=== PATIENT | male | born 2005 | race Caucasian/White ===

== ENCOUNTER 2024-08-05 21:45 | Outpatient (CLI) | payer BC, SELFPAY | END 2024-08-05 21:46 | disposition home or self-care (01) | LOC: AMB 08-18 18:45 | PROVIDERS: Visit Provider Student in an Organized Health Care Education/Training Program | DX: F29 Unspecified psychosis not due to a substance or known physiological condition (principal) | CPT/HCPCS: A0425; A0427 ==

== ENCOUNTER 2024-10-17 22:28 | Emergency (ER) | payer BC, SELFPAY ==
--- OUTSIDE RECORDS SUMMARY | 2024-10-17 22:31 | XMS_ITS | Clinical Summary ---
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 (07/13/2007): of the spermatic cord Resolved Problems Problem Noted Date Diagnosed Date Resolved Date Manic behavior 06/06/2021 06/10/2022 Immunizations Immunization Administration Dates Next Due COVID-19 vaccine (HungerTime NTech 30mcg/0.3mL) PF, MDV 07/05/2021 DTaP 04/25/2006 [id number] (Pediarix) 05/02/2005,02/21/2005,0 2004 HIB PRP-OMP (PedvaxHIB) 01/24/2006,02/21/2005, Inactivated Polio Vaccine 08/30/2013 MENINGOCOCCAL VACCINE 2 VIAL [id number] (MENVEO) 02/20/2018 MMR 08/30/2013,01/24/2006 Pneumococcal conj 7-Valent (Prevnar 7) 1 ,02/21/2005,2004,12/24 Td, Preservative Free (age >= 7 Years) 4 Tdap 02/20/2018 Family History Medical History Relation Name Comments Good Health Brother Good Health Father Good Health Mother Asthma Other distant relativ es on mom's side Cancer-colon Other maternal great grandma Diabetes Other maternal great aunt Heart Disease Other maternal great aunt Anesthesia Problem No Family History Hyperlipidemia No Family History Relation Name Status Comments Brother Father Mother Other Social History Tobacco Use Types Packs/Day Years Used Date Smoking Tobacco: Never Smokeless Tobacco: Never Tobacco Cessation:Counseling Given: Yes Comments:no exposure Alcohol Use Standard Drinks/Week Comments Yes 0 (1 standard drink = 0.6 oz pur e alcohol) occ PHQ-2 Answer Date Recorded PHQ-2 TOTAL SCORE 6 04/29/2023 Sex and Gender Information Value Date Recorded Sex Assigned at Not on file 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 Gender Identity Not on file Sexual Orientation Not on file Obstetrics History Last Filed Vital Signs Vital Sign Reading Time Taken Comments Blood Pressure 135/62 04/29/2023 9:36 AM CDT Pulse 84 04/29/2023 9:36 AM CDT Temperature 36.4 C (97.6 F) 11/08/2013 2:05 PM CDT Respiratory Rate - - Oxygen Saturation 100% 04/29/2023 9:36 AM CDT Inhaled Oxygen Concentration - - Weight 78.7 kg (173 lb 9.6 oz) 04/29/2023 9:36 A M CDT Height 189.9 cm (6' 2.76) 04/29/2023 9:36 AM CD T Body Mass Index 21.84 04/29/2023 9:36 AM CDT Body Mass Index Percentile 45.15% 04/29/2023 9:3 6 AM CDT Growth Chart: CDC (Boys, 2-2 0 Years) Plan of Treatment Health Maintenance Due Date Last Done Comments HIV for age 15-65 10/23/2019 HPV series for age 9-26 (1 - Male 3-dose series) 10/23/2019 Hepatitis C screening for age 18-79 2022 Well Child Check for age 3-20 06/10/2023 06/10/2022, 02/20/2018, 08/30/2013 COVID-19 vaccine series ( season) 2024 07/05/2021, 12/08/2020, 11/17/2020 Influenza Vaccine (#1) 2024 BMI (ht and wt on same day) for age 18+ 04/29/2024 04/29/2023 Depression screening for age 12+ 04/29/2024 04/29/2023, 06/10/2022 Tetanus booster 02/21/2028 02/20/2018, 08/30/2013 Pneumococcal series for age 6-49 Aged Out 04/25/2006, 02/21/2005, 2004, Additional history exists No longer eligible based on patient's age to complete this topic Meningococcal series for age 11-21 Aged Out 02/20/2018 No longer eligible based on patient's age to complete this topic Tdap Completed 02/20/2018 Insurance [facility] Care Teams Student Ministries Director Relationship Specialty Start Date End Date Pcp, No . PCP - General 08/17/13
--- OUTSIDE RECORDS SUMMARY | 2024-10-17 22:31 | XMS_ITS | Clinical Summary ---
Author Organization [facility] Address [address] [place] [address] Care Team Providers Care Plastics Fabrication Supervisor Name Role Phone [facility] Primary Care Provider Allergies No known active allergies Medications * This document contains information received from the source organization and may not represent a complete record from that organization. hydrOXYzine (ATARAX) 25 MG tabletIndicatio ns:Generalized anxiety disorder Take 1-2 tablets (25-50 mg) by mouth 2 times daily as needed for anxiety 90 tablet 06/13/2021 Active melatonin 3 MG tabletIndicatio ns:Insomnia due to other mental disorder Take 1 tablet (3 mg) by mouth nightly as needed for sleep 06/13/2021 Active QUEtiapine (SEROQUEL XR) 50 MG TB24 24 hr tabletIndicatio ns:Manic behavior (H) Take 2 tablets (100 mg) by mouth At Bedtime 60 tablet 06/13/2021 Active QUEtiapine (SEROQUEL) 25 MG tabletIndicatio ns:Manic behavior (H) Take 0.5-1 tablets (12.5-25 mg) by mouth 3 times daily as needed (anxiety, agitation) 60 tablet 06/13/2021 Active vitamin D2 (ERGOCALCIFEROL ) 44000 units (1250 mcg) capsuleIndicati ons:Vitamin D deficiency Take 1 capsule (50,000 Units) by mouth every 7 days 8 capsule 06/15/2021 Active Active Problems Problem Noted Date Diagnosed Date Generalized anxiety disorder 08/06/2024 Recurrent major depression 08/06/2024 Polysubstance abuse 06/06/2021 Manic behavior 06/06/2021 Encounters Date Type Department Care Team Description 08/08/2024 Telephone [facility] Services - Behavioral Service Line [address] [place] [address] Renea Nava 08/05/2024 10:47 PM CYLINDER GRINDER - 08/06/2024 1:58 AM CYLINDER GRINDER [facility] Emergency Dept [address] [place] [address] Manuel Kerns DO Severe episode of recurrent major depressive disorder, with psychotic features (H); Severe dextromethorphan use disorder (H) Discharge Disposition: Home or Self Care from Last 3 Months Immunizations Name Administration Dates Next Due COVID-19 MONOVALENT 12+ (Pfizer) 12/08/2020,10/21 DTAP (<7y) 04/25/2006 DTaP/HepB/IPV 05/02/2005,02/21/2005,2004 HIB(PRP-OMP)(PedvaxHIB) 01/24/2006,02/21/2005, MMR (MMRII) 08/30/2013,01/24/2006 Meningococcal ACWY (Menveo ) 02/20/2018 Pneumococcal (PCV 7) 04/25/2006,02/21/2005,12/31,2004 Poliovirus, inactivated (IPV) 08/30/2013 TD,PF 7+ (Tenivac) 08/30/2013 TDAP Vaccine (Boostrix) 02/20/2018 Social History Tobacco Use Types Packs/Day Years Used Date Smoking Tobacco: Never Smokeless Tobacco: Never Alcohol Use Standard Drinks/Week Comments Never 0 (1 standard drink = 0.6 oz pur e alcohol) Adolescent Education Answer Date Record ed Getting School Help Needed Not on file 04/12 Sex and Gender Information Value Date Recorded Sex Assigned at Not on file Legal Sex Male 2:56 PM CYLINDER GRINDER Gender Identity Not on file Sexual Orientation Not on file Last Filed Vital Signs Vital Sign Reading Time Taken Comments Blood Pressure 146/82 08/06/2024 1:39 AM CYLINDER GRINDER Pulse 89 08/06/2024 1:39 AM CYLINDER GRINDER Temperature 36.8 C (98.3 F) 06/13/2021 7:00 AM CYLINDER GRINDER Respiratory Rate 16 06/08/2021 7:00 PM CYLINDER GRINDER Oxygen Saturation 98% 08/06/2024 1:40 AM CYLINDER GRINDER Inhaled Oxygen Concentration - - Weight 82.3 kg (181 lb 8 oz) 06/09/2021 9:00 AM CYLINDER GRINDER Height 185.4 cm (6' 1) 06/06/2021 5:45 PM CYLINDER GRINDER Body Mass Index 23.95 06/06/2021 5:45 PM CYLINDER GRINDER Body Mass Index Percentile 80.97% 06/09/2021 9:0 0 AM CYLINDER GRINDER Growth Chart: [facility] (Boys, 2-2 0 Years) Plan of Treatment Health Maintenance Due Date Last Done Comments ADVANCE CARE PLANNING 2004 ANNUAL REVIEW OF HM ORDERS 2004 VARICELLA IMMUNIZATION (1 of 2 - 13+ 2-dose series) 2017 HIV SCREENING 10/23/2019 HPV IMMUNIZATION (1 - Male 3-dose series) 10/23/2019 MENINGITIS B IMMUNIZATION (1 of 2 - Standard) 2020 HEPATITIS C SCREENING 2022 YEARLY PREVENTIVE VISIT 06/10/2023 06/10/2022 HEPATITIS A IMMUNIZATION (1 of 2 - Risk 2-dose series) 10/23/2023 COVID-19 Vaccine ( season) 2024 07/05/2021, 12/08/2020, 11/17/2020 INFLUENZA VACCINE (#1) 2024 DTAP/TDAP/TD IMMUNIZATION (7 - Td or Tdap) 02/21/2028 02/20/2018, 08/30/2013, 04/25/2006, Additional history exists ZOSTER IMMUNIZATION (1 of 2) 2054 HEPATITIS B IMMUNIZATION Completed 005, 02/21/2005, 2004 HIB IMMUNIZATION Completed 01/24/2006, 10/2004, 2004 Pneumococcal Vaccine: Pediatrics (0 to 5 Years) and At-Risk Patients (6 to 49 Years) Aged Out 04/25/2006, 02/21/2005, 2004, Additional history exists No longer eligible based on patient's age to complete this topic IPV IMMUNIZATION Completed 08/30/2013, , 02/21/2005, Additional history exists MENINGITIS IMMUNIZATION Aged Out 02/20/2018 No l onger eligible based on patient's age to complete this topic Insurance [place] OF [place] BCBS OF [place] BCBS OF [place] BCBS OF [place] BCBS OF OR [facility] Advance Directives For more information, please contact: [phone] * Full Code (Latest Code Status on File) Date Activated Date Inactivated Comments 06/06/2021 6:29 PM 06/13/2021 4:08 PM All basic and advanced life-sustaining interventions are performed as appropriate Question Answer Comments Code status determined by: Discussion with amaury nt/ legal decision maker Care Teams Plastics Fabrication Supervisor Relationship Specialty Start Date End Date [facility], [address] [id number] PCP - General 08/06/24
[2024-10-17 22:45] VITALS: BP 142/88; PULSE 110; RESP 16; TEMP 37.9; O2SAT 97; BMI 22.4
[2024-10-17 23:24] LABS: Basophils Absolute Auto 0.02 K/uL (0.00-0.30); Basophils Percent Auto 0.2 % (0.0-3.0); Eosinophils Absolute Auto 0.17 K/uL (0.00-0.50); Eosinophils Percent Auto 1.8 % (0.0-7.0); Hematocrit 43.8 % (37.0-53.0); Hemoglobin* 14.5 gm/dL (13.5-17.5); Lymphocytes Absolute Auto 3.26 K/uL (0.90-2.90); Lymphocytes Percent Auto 34.4 % (20-44); Mean Corpuscular HGB Conc 33 gm/dL (32-36); Mean Corpuscular Hemoglobin 30 pg (26-34); Mean Corpuscular Volume 91 fL (80-100); Neutrophils Absolute Auto 5.26 K/uL (1.7-7.0); Neutrophils Percent Auto 55.6 % (42.0-72.0); Platelet Count* 279 K/uL (140-440); White Blood Count* 9.47 K/uL (4.50-11.00)
[2024-10-17 23:27] LABS: Slide Review Reflex No
[2024-10-17 23:41] LABS: Chloride* 105 mmol/L (96-114); Potassium* 3.6 mmol/L (3.6-5.1); Sodium* 144 mmol/L (135-149)
[2024-10-17 23:44] LABS: Anion Gap 13 mEq/L (7-15); Blood Urea Nitrogen* 21 mg/dL (5-24); Calcium* 9.1 mg/dL (8.7-10.8); Carbon Dioxide* 26 mmol/L (20-32); Creatinine* 1.2 mg/dL (0.6-1.2); Est. Creatinine Clearance* 117.14; Estimated Glomerular Filt Rate 89 ml/min; Glucose* 104 mg/dL (60-115)
[2024-10-17 23:53] LABS: Acetaminophen* < 10.0 ug/mL (10.0-30.0); Ethanol* < 0.01 % (0.01-0.03); Salicylate* < 1.0 mg/dL (1.0-10)
--- NOTE | 2024-10-18 00:16 | ED.GENADULT ---
HPI - General Adult General Chief complaint: Unspecified Complaint, Adult Stated complaint: Detox Time Seen by Provider: 10/18/24 00:00 Source: patient and other Mode of arrival: ambulatory Limitations: no limitations History of Present Illness HPI narrative: 18-year-old male presents the emergency department with request for transfer to detox. Currently living in a sober house type situation following discharge from inpatient medical in substance abuse treatment 5 weeks ago. Reports that he was hospitalized in [place] for about 1 month for his moods. Denies any use of alcohol for the last 3 months but does admit to use of hallucinogens and psychedelics. Also uses marijuana on a regular basis. Has prior diagnoses of major depressive disorder, generalized anxiety disorder and PTSD. Reports that he used Dextromethomorphan cough syrup and Benadryl this morning, 12 hours ago at the time my interview to get high. Reports that this was successful. Dosing is small, consistent with no more than 2-3 times the typical adult dose and certainly less than the 24 hour dose. Did not use any other mood altering substances tonight. Nursing team reports that he called the ED prior to coming to discuss wanting to transfer to detox and he was informed of the typical process of this and that he may self refer and would not require emergency department transfer necessarily. He denies any other acute medical concerns at this time. No acute psychosis or other decompensation. Not verbalizing suicidal thoughts. No additional concerns reported by accompanying adult. Reports his past medical history is benign besides mental health issues. Current medications are venlafaxine, Aricept and Adderall. Use of hallucinogens, marijuana on a regular basis, no alcohol, no seizure history. ROS is notable for recent ingestion, otherwise denies times 12 systems. Related Data Home Medications ?Medication ?Instructions ?Recorded ?Confirmed aripiprazole 5 mg tablet 5 mg PO DAILY 10/17/24 10/17/24 dextroamphetamine-amphetamine ER 1 cap PO QAM 10/17/24 10/17/24 20 mg 24hr capsule,extend release venlafaxine 37.5 mg 37.5 mg PO DAILY 10/17/24 10/17/24 capsule,extended release 24 hr venlafaxine 75 mg capsule,extended 75 mg PO DAILY 10/17/24 10/17/24 release 24 hr Allergies Allergy/AdvReac Type Severity Reaction Status Date / Time No Known Drug Allergies [facility] Verified 10/17/24 22[facility] Social History Smoking Status: Current some day smoker Do you use any of these nicotine containing products: Vaping Products Second hand tobacco smoke exposure: Yes How often do you have a drink containing alcohol: never How often do you have six or more drinks on one occasion: Never AUDIT-C Alcohol total score: 0 Non-prescribed substance use: marijuana (any form) Exam Const: Vital Signs, click to edit/add: Vital Signs - 24 hr 10/17/24 22:45 10/18/24 00:19 10/18/24 01:42 Temperature 100.3 F H 98.6 F 98.6 F Pulse Rate [Pulse Oximeter] 110 H 89 81 Respiratory Rate 16 16 16 Blood Pressure [Ri ght Upper Arm] 142/88 H 131/82 125/74 Pulse Oximetry 97 97 97 Oxygen Delivery Me thod Room Air Room Air Room Air Documenting provider has reviewed patient's vital signs: yes Common normals: no apparent distress General appearance: well kempt Other: Calm, cooperative. Makes good eye contact. Clean, appears well nourished and well hydrated. Normal grooming. does not appear restless or fidgeting. Thought process is logical, well organized. HENMT: Common normals: normocephalic Head and scalp: normocephalic Face and sinus: normal facial exam Mouth: oral and palatal mucosa normal Throat: posterior oropharynx normal Eye: Common normals: conjunctivae normal General eye: normal appearance of both eyes Conjunctiva: conjunctiva(e) normal Neck & C-Spine: Common normals: full ROM and no lymphadenopathy General: normal visual inspection Resp: Common normals: normal respiratory effort, no use of accessory muscles and clear to auscultation bilaterally Effort & inspection: able to speak in complete sentences Auscultation: clear to auscultation bilaterally Cardio: Common normals: regular rate, regular rhythm, S1 normal heart sound, S2 normal heart sound and no murmurs Rate: regular rate Rhythm: regular rhythm Heart sounds: S1 normal and S2 normal GI: Common normals: Normal to inspection, nondistended, normoactive bowel sounds present, soft to palpation, non-tender, no hepatosplenomegaly and no masses Palpation: soft and no hepatosplenomegaly Extremity: Common normals: normal to inspection, normal capillary refill and no pedal edema Psych: Common normals: thought process normal and speech normal Appearance: well kempt Activity/motor behavior: appropriate eye contact Speech: normal speech Thought process: normal thought process Attention/concentration: attention grossly intact Memory/cognition: memory grossly intact Insight: insight good Judgement: judgment good Skin: Common normals: no rashes or lesions noted General skin exam: no rashes or lesions noted Course Course ED Course: 18-year-old male with recurrent substance abuse, history of depression, anxiety and PTSD. Does not appear to be in acute mental health crisis at this time. He is requesting detox. Does not seem high risk of alcohol withdrawal seizures or other dangerous sequelae. Recent recreational use of Benadryl and cough syrup at nontoxic doses does not warrant further workup 12 hours from ingestion. Patient is medically cleared for detox at this time. Counseled patient that unfortunately due to the snowy and icy conditions, [place] transport to our most widely use detox facility. I have ask the nursing team to contact facilities [place] to see if he can be placed there, may need to arrange ambulance transport. We would consider letting him go by private car also. At this time, he is voluntary. Reevaluation(s) Time of Reevaluation #1: 01:41 Reevaluation #1: update: Nursing team has informed me that he can be excepted up at [facility]. We will arrange transport. His group living facility will provide medications for his stay. No indications for further testing at our facility at this time. He is discharged voluntarily and will be transported to [facility] by [facility] ambulance team. Vital Signs Vital signs: Initial Vital Signs Temperature 100.3 F H 10/17/24 22:45 Temperature Source Temporal Artery Scan 10/17/24 22:45 Pulse Rate 110 H 10/17/24 22:45 Respiratory Rate 16 10/17/24 22:45 Blood Pressure 142/88 H 10/17/24 22:45 Blood Pressure Mean 106 H 10/17/24 22:45 Pulse Oximetry 97 10/17/24 22:45 Oxygen Delivery Method Room Air 10/17/24 22:45 Vital Signs Temperature 100.3 F H 10/17/24 22:45 Pulse Rate 110 H 10/17/24 22:45 Respiratory Rate 16 10/17/24 22:45 Blood Pressure 142/88 H 10/17/24 22:45 Pulse Oximetry 97 10/17/24 22:45 Oxygen Delivery Method Room Air 10/17/24 22:45 Temperature 98.6 F 10/18/24 01:42 Pulse Rate 81 10/18/24 01:42 Respiratory Rate 16 10/18/24 01:42 Blood Pressure 125/74 10/18/24 01:42 Pulse Oximetry 97 10/18/24 01:42 Oxygen Delivery Method Room Air 10/18/24 01:42 Medical Decision Making Lab Data Lab results reviewed: Yes I reviewed the patient's lab results Lab results narrative: labs were ordered by previous provider prior to the start of my shift. These are reviewed. No significant abnormalities appreciated. Labs: Lab Results 10/17/24 10/17/24 Range/Units 00:45 23:20 WBC 9.47 (4.50-11.00) K/uL RBC 4.80 (4.30-5.90) m/uL Hgb 14.5 (13.5-17.5) gm/dL Hct 43.8 (37.0-53.0) % MCV 91 (80-100) fL MCH 30 (26-34) pg MCHC 33 (32-36) gm/dL RDW Coeff of Zaria 13.0 (11.5-15.5) % Plt Count 279 (140-440) K/uL Neut % (Auto) 55.6 (42.0-72.0) % Lymph % (Auto) 34.4 (20-44) % [place] % (Auto) 8.0 (0.0-11.0) % Eos % (Auto) 1.8 (0.0-7.0) % Baso % (Auto) 0.2 (0.0-3.0) % Neut # (Auto) 5.26 (1.7-7.0) K/uL Lymph # (Auto) 3.26 H (0.90-2.90) K/uL [place] # (Auto) 0.80 (0.00-0.90) K/UL Eos # (Auto) 0.17 (0.00-0.50) K/uL Baso # (Auto) 0.02 (0.00-0.30) K/uL Abs Immat Gran (auto) 0.00 (0.00-0.30) K/uL Imm/Tot Granulo (auto) 0.0 % Sodium 144 (135-149) mmol/L Potassium 3.6 (3.6-5.1) mmol/L Chloride 105 (96-114) mmol/L Carbon Dioxide 26 (20-32) mmol/L Anion Gap 13 (7-15) mEq/L BUN 21 (5-24) mg/dL Creatinine 1.2 (0.6-1.2) mg/dL Estimated Creat Clear 117.14 Estimated GFR 89 ml/min Glucose 104 (60-115) mg/dL Calcium 9.1 (8.7-10.8) mg/dL Salicylates < 1.0 L (1.0-10) mg/dL Urine Opiates Screen Negative (Negative) Ur Oxycodone Screen Negative (Negative) Urine Methadone Screen Negative (Negative) Acetaminophen < 10.0 (10.0-30.0) ug/mL Ur Barbiturates Screen Negative (Negative) U Tricyclic Antidepress Negative (Negative) Ur Phencyclidine Scrn Negative (Negative) Ur Amphetamines Screen POSITIVE A (Negative) U Methamphetamines Scrn Negative (Negative) U Benzodiazepines Scrn Negative (Negative) Urine Cocaine Screen Negative (Negative) U Marijuana (THC) Screen POSITIVE A (Negative) Ur Drug Screen Comment See Note Ethyl Alcohol < 0.01 (0.01-0.03) % Discharge Plan Discharge Clinical Impression: Current recreational drug use Patient Disposition: Xfer Other Condition: Stable Instructions: Polysubstance Use Disorder (ED) Activity Level: No Restrictions Discharge Diet: Regular Prescriptions: No Action venlafaxine 37.5 mg capsule,extended release 24hr 37.5 mg PO DAILY venlafaxine 75 mg capsule,extended release 24hr 75 mg PO DAILY dextroamphetamine-amphetamine 20 mg capsule,extended release 24hr 1 cap PO QAM aripiprazole 5 mg tablet 5 mg PO DAILY Stand Alone Forms: MyHealth Info Instructions
[2024-10-18 00:19] VITALS: BP 131/82; PULSE 89; RESP 16; TEMP 37; O2SAT 97
--- OUTSIDE RECORDS SUMMARY | 2024-10-18 00:25 | XMS_ITS | Clinical Summary ---
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 PCP - General 08/17/13
--- OUTSIDE RECORDS SUMMARY | 2024-10-18 00:25 | XMS_ITS | Clinical Summary ---
Author Organization [facility] Address [address] [place] [address] Care Team Providers Care Plasterer Maintenance Name Role Phone [facility] Primary Care Provider Allergies No known active [...] tablet 06/13/2021 Active vitamin D2 (ERGOCALCIFEROL ) 17335 units (1250 mcg) capsuleIndicati ons:Vitamin D deficiency Take 1 capsule (50,000 Units) by mouth every 7 days 8 capsule 06/15/2021 Active Active Problems Problem Noted Date Diagnosed Date Generalized anxiety disorder 08/06/2024 Recurrent major depression 08/06/2024 Polysubstance abuse 06/06/2021 Manic behavior 06/06/2021 Encounters Date Type Department Care Team Description 08/08/2024 Telephone [facility] Services - Behavioral Service Line [address] [place] [address] Renea Nava 08/05/2024 10:47 PM TERMINATION CLERK - 08/06/2024 1:58 AM TERMINATION CLERK [facility] Emergency Dept [address] [place] [address] Manuel Kerns DO Severe episode of recurrent [...] on file Legal Sex Male 2:56 PM TERMINATION CLERK Gender Identity Not on file Sexual Orientation Not on file Last Filed Vital Signs Vital Sign Reading Time Taken Comments Blood Pressure 146/82 08/06/2024 1:39 AM TERMINATION CLERK Pulse 89 08/06/2024 1:39 AM TERMINATION CLERK Temperature 36.8 C (98.3 F) 06/13/2021 7:00 AM TERMINATION CLERK Respiratory Rate 16 06/08/2021 7:00 PM TERMINATION CLERK Oxygen Saturation 98% 08/06/2024 1:40 AM TERMINATION CLERK Inhaled Oxygen Concentration - - Weight 82.3 kg (181 lb 8 oz) 06/09/2021 9:00 AM TERMINATION CLERK Height 185.4 cm (6' 1) 06/06/2021 5:45 PM TERMINATION CLERK Body Mass Index 23.95 06/06/2021 5:45 PM TERMINATION CLERK Body Mass Index Percentile 80.97% 06/09/2021 9:0 0 AM TERMINATION CLERK Growth Chart: [facility] (Boys, 2-2 0 Years) Plan of Treatment [...] to complete this topic [place] [facility] Advance Directives For more information, please contact: [phone] * Full Code (Latest Code Status on File) Date Activated Date Inactivated Comments 06/06/2021 6:29 PM 06/13/2021 4:08 PM All basic and advanced life-sustaining interventions are performed as appropriate Question Answer Comments Code status determined by: Discussion with amaury nt/ legal decision maker Care Teams Plasterer Maintenance Relationship Specialty Start Date End Date [facility], [address] [address] PCP - General 08/06/24
[2024-10-18 00:59] LABS: Amphetamine Screen Urine POSITIVE (Negative); Barbiturate Screen Urine Negative (Negative); Benzodiazepines Screen Urine Negative (Negative); Cannabinoid Screen Urine POSITIVE (Negative); Cocaine Screen Urine Negative (Negative); Methadone Screen Urine Negative (Negative); Methamphetamines Screen Urine Negative (Negative); Opiate Screen Urine Negative (Negative); Oxycodone Screen Urine Negative (Negative); Phencyclidine Screen Urine Negative (Negative); Tricyclic Antidepressant Urine Negative (Negative)
[2024-10-18 01:42] VITALS: BP 125/74; PULSE 81; RESP 16; TEMP 37; O2SAT 97
[2024-10-18 02:31] VITALS: BP 125/74; PULSE 81; RESP 16; TEMP 37
== END 2024-10-18 02:31 | disposition other institution (70) ==
PROVIDERS: Emergency Provider Family Medicine
DX: F19.10 Other psychoactive substance abuse, uncomplicated (principal)
CPT/HCPCS: 36415; 80048; 80143; 80179; 80306; 82077; 85025; 99283; 99284

== ENCOUNTER 2024-10-18 02:20 | Outpatient (CLI) | payer BC, SELFPAY | END 2024-10-18 02:21 | disposition home or self-care (01) | PROVIDERS: Visit Provider Family Medicine | DX: T48.3X4A Poisoning by antitussives, undetermined, initial encounter (principal) | CPT/HCPCS: A0425; A0428 ==

== ENCOUNTER 2024-10-29 09:02 | Outpatient (CLI) | payer BC, SELFPAY | END 2024-10-29 09:03 | disposition home or self-care (01) | LOC: AMB 11-01 09:20 | PROVIDERS: Visit Provider Family Medicine | DX: R45.851 Suicidal ideations (principal); T45.0X2A Poisoning by antiallergic and antiemetic drugs, intentional self-harm, initial encounter; Y92.9 Unspecified place or not applicable | CPT/HCPCS: A0425; A0427 ==

== ENCOUNTER 2024-10-29 19:17 | Emergency (ER) | payer BC, SELFPAY ==
[2024-10-29] VITALS (35 sets, daily range): BP systolic 125–167; BP diastolic 73–144; PULSE 109–133; RESP 5–188; TEMP 38.3; O2SAT 96–100; BMI 25.1
--- OUTSIDE RECORDS SUMMARY | 2024-10-29 19:19 | XMS_ITS | Clinical Summary ---
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 Gender Identity Not on file Sexual Orientation [...] Mass Index 21.84 04/29/2023 9:36 AM CDT Plan of Treatment Health Maintenance Due Date Last Done Comments HIV for age 15-65 10/23/2019 HPV series for age 9-26 (1 - Male 3-dose series) 10/23/2019 Hepatitis C screening for age 18-79 2022 Well Child Check for age 3-20 06/10/2023 06/10/2022, 02/20/2018, 08/30/2013 COVID-19 vaccine series ( season) 2024 07/05/2021, 12/08/2020, 11/17/2020 BMI (ht and wt on same day) for age 18+ 04/29/2024 04/29/2023 Depression screening for age 12+ 04/29/2024 04/29/2023, 06/10/2022 Influenza Vaccine (Season Ended) 2025 Tetanus booster 02/21/2028 02/20/2018, 08/30/2013 Pneumococcal series for age 6-49 Aged Out 04/25/2006, 02/21/2005, 2004, Additional history exists No longer eligible based on patient's age to complete this topic Meningococcal series for age 11-21 Aged Out 02/20/2018 No longer eligible based on patient's age to complete this topic Tdap Completed 02/20/[address] [place] [address] [facility] Care Teams Geophysical Laboratory Director Relationship Specialty Start Date End Date Pcp, No . PCP - General 08/17/13
--- OUTSIDE RECORDS SUMMARY | 2024-10-29 19:19 | XMS_ITS | Clinical Summary ---
Author Organization [facility] Address [address] [place] [id number] Care Team Providers Care Solid Propellant Processor Name Role Phone [facility] Primary Care Provider Allergies No known active [...] tablet 06/13/2021 Active vitamin D2 (ERGOCALCIFEROL ) 45914 units (1250 mcg) capsuleIndicati ons:Vitamin D deficiency Take 1 capsule (50,000 Units) by mouth every 7 days 8 capsule 06/15/2021 Active Active Problems Problem Noted Date Diagnosed Date Generalized anxiety disorder 08/06/2024 Recurrent major depression 08/06/2024 Polysubstance abuse 06/06/2021 Manic behavior 06/06/2021 Encounters Date Type Department Care Team Description 08/08/2024 Telephone [facility] Services - Behavioral Service Line [address] [place] [address] Renea Nava 08/05/2024 10:47 PM HEAD PASTRY CHEF - 08/06/2024 1:58 AM HEAD PASTRY CHEF Emergency Health [facility] Emergency Dept [address] [place] [address] Manuel Kerns DO Severe episode of recurrent [...] on file Legal Sex Male 2:56 PM HEAD PASTRY CHEF Gender Identity Not on file Sexual Orientation Not on file Last Filed Vital Signs Vital Sign Reading Time Taken Comments Blood Pressure 146/82 08/06/2024 1:39 AM HEAD PASTRY CHEF Pulse 89 08/06/2024 1:39 AM HEAD PASTRY CHEF Temperature 36.8 C (98.3 F) 06/13/2021 7:00 AM HEAD PASTRY CHEF Respiratory Rate 16 06/08/2021 7:00 PM HEAD PASTRY CHEF Oxygen Saturation 98% 08/06/2024 1:40 AM HEAD PASTRY CHEF Inhaled Oxygen Concentration - - Weight 82.3 kg (181 lb 8 oz) 06/09/2021 9:00 AM HEAD PASTRY CHEF Height 185.4 cm (6' 1) 06/06/2021 5:45 PM HEAD PASTRY CHEF Body Mass Index 23.95 06/06/2021 5:45 PM HEAD PASTRY CHEF Plan of Treatment Health Maintenance Due Date Last Done Comments ADVANCE CARE PLANNING 2004 ANNUAL REVIEW OF HM ORDERS 2004 HIV SCREENING 10/23/2019 HPV IMMUNIZATION (1 - [...] HEPATITIS B IMMUNIZATION Completed 005, 02/21/2005, 2004 Pneumococcal Vaccine: Pediatrics (0 to 5 Years) and At-Risk Patients (6 to 49 Years) Aged Out 04/25/2006, 02/21/2005, 2004, Additional history exists No longer eligible based on patient's age to complete this topic MENINGITIS IMMUNIZATION Aged Out 02/20/2018 No l onger eligible based on patient's age to complete this topic Insurance [place] Member Subscriber Plan / Payer (Ef fective 2018-Present) Name:EDUARDO AREVALO Relation to Subscriber:Child Name:DEBRA YATES Date of :1966 (Home) Address: [address] [place] [address] Payer ID:[id number] (NAIC) Type:Indemnity Address: [place] [id number] [place] [address] Advance Directives For more information, please contact: [phone] * Full Code (Latest Code Status on File) Date Activated Date Inactivated Comments 06/06/2021 6:29 PM 06/13/2021 4:08 PM All basic and advanced life-sustaining interventions are performed as appropriate Question Answer Comments Code status determined by: Discussion with amaury nt/ legal decision maker Care Teams Solid Propellant Processor Relationship Specialty Start Date End Date [address] [address] PCP - General 08/06/24
--- NOTE | 2024-10-29 19:29 | CRLHL7_ITS ---
For Patients: As a result of the Cures Act, medical imaging exams and procedure reports are released immediately into your electronic medical record. You may view this report before your referring provider. If you have questions, please contact your health care provider. Indication: Overdose Technique: AP view of the chest. Comparison: None. Findings: Low lung volumes. Normal cardiomediastinal silhouette. No focal consolidation, pleural effusions, or visualized pneumothorax. Impression: No acute cardiopulmonary disease. Dictated by Melvin Nassar MD @ 10/29/2024 8:08:03 PM (Electronically Signed)
--- NOTE | 2024-10-29 19:35 | ED_ITS ---
HPI - General Adult General Date Seen: 10/29/24 Chief complaint: Altered Mental Status Stated complaint: Overdose Time Seen by Provider: 10/29/24 19:30 History of Present Illness HPI narrative: 19 yo M brought to the ER today by EMS with reported dextromethorphan and recreational ingestion/overdose. History obtained from the patient is that he is a drug user. It sounds like dextromethorphan is his drug of choice. He is actually recently been in a sober house for the past week or 2. He left the sober house today and walked down to [facility] and stool some dextromethorphan. He took 888 mg of dextromethorphan elix this evening. On not able to get a precise time of ingestion. He says he did it to get high. When asked if he was trying to hurt himself he does not really answer directly but then does say he has had thoughts of suicide. He denies any other ingestions aside from tobacco. He says he is a heavy tobacco smoker He does give me his mom's name and phone number so I can call her to give her an update. Discussed with his mother, Viktoriya, by phone. She does confirm that he has a 3 year history of heavy recreational drug use. He has apparently been through treatment a couple of times. Was recently kicked out of her house because she cannot support his ongoing drug use habits. She is trying to set boundaries with him. He moved into a sober home but was kicked out from there and so now is in his 2nd sober home. She is not sure if he will be allowed to return to a sober house after this event. Dextromethorphan is is most common drugs of abuse. Related Data Home Medications ?Medication ?Instructions ?Recorded ?Confirmed aripiprazole 5 mg tablet 5 mg PO DAILY 10/17/24 10/17/24 dextroamphetamine-amphetamine ER 1 cap PO QAM 10/17/24 10/17/24 20 mg 24hr capsule,extend release venlafaxine 37.5 mg 37.5 mg PO DAILY 10/17/24 10/17/24 capsule,extended release 24 hr venlafaxine 75 mg capsule,extended 75 mg PO DAILY 10/17/24 10/17/24 release 24 hr Allergies Allergy/AdvReac Type Severity Reaction Status Date / Time No Known Drug Allergies Allergy Verified 10/29/24 19:27 [facility] Social History Smoking Status: Current some day smoker Do you use any of these nicotine containing products: Vaping Products Second hand tobacco smoke exposure: Yes How often do you have a drink containing alcohol: never How often do you have six or more drinks on one occasion: Never AUDIT-C Alcohol total score: 0 Non-prescribed substance use: marijuana (any form) Exam Narrative: Exam Narrative: Constitutional: I 1st encountered him in the hallway. He was shouting loudly but not aggressive. Appears well-developed and well-nourished. Alert. He answers many questions appropriately but at times seems a little bit confused in tangential. He is tachycardic.. HENT: Head: Atraumatic. Nose: Nose normal. Mouth/Throat: Oral mucosa is clear but dry. no trismus. Pharynx normal. Tonsils symmetric. No tonsillar enlargement, erythema, or exudate. Eyes: Conjunctivae normal. EOM normal. Pupils equal, round, and reactive to light. No scleral icterus. Neck: Normal range of motion. Neck supple. No tracheal deviation present. Cardiovascular: Normal rate, regular rhythm. No gallop. No friction rub. No murmur heard. Symmetric radial artery pulses Pulmonary/Chest: Effort normal. No stridor. No respiratory distress. No wheezes. No rales. No rhonchi . No tenderness. Abdominal: Soft. Bowel sounds normal. No distension. No mass. No tenderness. No rebound. No guarding. Musculoskeletal: RUE: Normal range of motion. No tenderness. No deformity LUE: Normal range of motion. No tenderness. No deformity RLE: Normal range of motion. No edema. No tenderness. No deformity LLE: Normal range of motion. No edema. No tenderness. No deformity Lymph: No cervical adenopathy. Neurological: Alert and oriented to person, place, and time. Normal strength. CN II-VII intact. No sensory deficit. GCS eye subscore is 4. GCS verbal subscore is 5. GCS motor subscore is 6. Normal coordination Skin: Skin is warm and dry. No rash noted. No pallor. Normal capillary refill. Psychiatric: Seems somewhat manic, agitated. Will need reassessment when he is clinically sober. When asked him how he is feeling and why he took DX M he says he he is feeling, ?very very very very very very very very very very very very good. ? He does endorse all all long-term pattern of drug abuse. He is able to tell me he lives at a sober house and went to [facility] and stole the dextromethorphan today and then took it. He also use some marijuana. He smokes lot of tobacco. He does not think he used any other drugs. When asked him why he took the dextromethorphan he took it to feel good. It does not sound like it was a specific suicide attempt. However he does know that there is Doxil me in the cough medicine he drank which can be dangerous. He had thoughts that maybe the doxylamine might hurt his liver. See HPI. Const: Vital Signs, click to edit/add: Vital Signs - 24 hr 10/29/24 19:24 10/29/24 19:26 10/29/24 19:30 Temperature 100.9 F H Pulse Rate 125 H Respiratory Rate 188 H 6 L 7 L Blood Pressure Blood Pressure [Ri ght Upper Arm] 139/89 Pulse Oximetry 100 100 Oxygen Delivery Me thod Room Air 10/29/24 19:45 10/29/24 19:54 10/29/24 20:00 Temperature Pulse Rate Respiratory Rate 7 L 23 18 Blood Pressure 131/85 Blood Pressure [Ri ght Upper Arm] 146/100 H Pulse Oximetry 98 Oxygen Delivery Me thod Room Air 10/29/24 20:00 10/29/24 20:06 10/29/24 20:20 Temperature Pulse Rate 128 H Respiratory Rate 5 L 13 10 L Blood Pressure 146/100 H Blood Pressure [Ri ght Upper Arm] Pulse Oximetry 98 Oxygen Delivery Me thod 10/29/24 20:21 10/29/24 20:24 10/29/24 20:30 Temperature Pulse Rate 117 H Respiratory Rate 6 L 18 12 Blood Pressure 161/82 H Blood Pressure [Ri ght Upper Arm] 161/82 H Pulse Oximetry 97 98 Oxygen Delivery Me thod Room Air 10/29/24 20:31 10/29/24 20:41 10/29/24 20:46 Temperature Pulse Rate 126 H 118 H 123 H Respiratory Rate 14 9 L 10 L Blood Pressure 136/88 131/86 Blood Pressure [Ri ght Upper Arm] Pulse Oximetry 99 97 98 Oxygen Delivery Me thod 10/29/24 20:47 10/29/24 20:51 10/29/24 21:01 Temperature Pulse Rate 117 H 117 H Respiratory Rate 18 6 L 7 L Blood Pressure 142/82 H 137/79 Blood Pressure [Ri ght Upper Arm] 136/88 Pulse Oximetry 98 96 96 Oxygen Delivery Me thod Room Air 10/29/24 21:12 10/29/24 21:15 10/29/24 21:22 Temperature Pulse Rate 117 H 116 H 118 H Respiratory Rate 7 L 6 L 7 L Blood Pressure 131/80 133/93 H Blood Pressure [Ri ght Upper Arm] Pulse Oximetry 96 97 97 Oxygen Delivery Me thod 10/29/24 21:30 10/29/24 21:37 10/29/24 21:42 Temperature Pulse Rate 120 H 115 H 109 H Respiratory Rate 7 L Blood Pressure 154/84 H 125/73 Blood Pressure [Ri ght Upper Arm] Pulse Oximetry 97 97 98 Oxygen Delivery Me thod 10/29/24 21:52 10/29/24 21:52 10/29/24 22:02 Temperature Pulse Rate 125 H 125 H 121 H Respiratory Rate Blood Pressure 167/89 H 167/89 H 138/83 Blood Pressure [Ri ght Upper Arm] Pulse Oximetry 99 99 98 Oxygen Delivery Me thod 10/29/24 22:12 10/29/24 22:25 10/29/24 22:32 Temperature Pulse Rate 133 H 129 H Respiratory Rate Blood Pressure 142/73 H 147/90 H 167/144 H Blood Pressure [Ri ght Upper Arm] Pulse Oximetry 98 97 Oxygen Delivery Me thod 10/29/24 22:38 10/29/24 22:39 10/29/24 22:45 Temperature Pulse Rate 117 H 118 H 123 H Respiratory Rate 7 L 7 L 13 Blood Pressure 142/94 H Blood Pressure [Ri ght Upper Arm] Pulse Oximetry 98 98 98 Oxygen Delivery Me thod 10/29/24 23:00 10/29/24 23:02 10/29/24 23:34 Temperature Pulse Rate 129 H 125 H 115 H Respiratory Rate 8 L 7 L 14 Blood Pressure 155/85 H Blood Pressure [Ri ght Upper Arm] Pulse Oximetry 97 96 98 Oxygen Delivery Me thod 10/29/24 23:35 Temperature Pulse Rate 118 H Respiratory Rate 10 L Blood Pressure Blood Pressure [Ri ght Upper Arm] Pulse Oximetry 97 Oxygen Delivery Me thod Course Course ED Course: Recheck-patient says he started to feel better. Says he feels groggy from the Ativan but otherwise fine. Reevaluation(s) Reevaluation #1: Recheck -2229. Heart rate still elevated about 125, sinus tach. Blood pressure 149/70. Mental status normal. Vital Signs Vital signs: Initial Vital Signs Temperature 100.9 F H 10/29/24 19:24 Temperature Source Temporal Artery Scan 10/29/24 19:24 Respiratory Rate 188 H 10/29/24 19:24 Blood Pressure 139/89 10/29/24 19:24 Blood Pressure Mean 105 10/29/24 19:24 Blood Pressure Position Sitting 10/29/24 19:24 Pulse Oximetry 100 10/29/24 19:24 Oxygen Delivery Method Room Air 10/29/24 19:24 Vital Signs Temperature 100.9 F H 10/29/24 19:24 Respiratory Rate 188 H 10/29/24 19:24 Blood Pressure 139/89 10/29/24 19:24 Pulse Oximetry 100 10/29/24 19:24 Oxygen Delivery Method Room Air 10/29/24 19:24 Temperature 100.9 F H 10/29/24 19:24 Pulse Rate 118 H 10/29/24 23:35 Respiratory Rate 10 L 10/29/24 23:35 Blood Pressure 155/85 H 10/29/24 23:02 Pulse Oximetry 97 10/29/24 23:35 Oxygen Delivery Method Room Air 10/29/24 20:47 Medications Administered Medications: Generic Name Dose Route Start Last Admin Trade Name Freq PRN Reason Stop Dose Admin Nicotine 1 patch 10/29/24 21:00 10/29/24 21:14 Nicotine 21 Mg Patch TRANSDERMA 1 patch Q24H MUNIR Administration Discontinued Medications Generic Name Dose Route Start Last Admin Trade Name Freq PRN Reason Stop Dose Admin Sodium Chloride 1,000 mls @ 1,000 mls/hr 10/29/24 19:45 10/29/24 23:36 0.9 % Sodium Chloride 1000 Ml IV 10/29/24 20:44 Infused .Q1H MUNIR Infusion Sodium Chloride 1,000 mls @ 1,000 mls/hr 10/29/24 21:00 10/29/24 23:36 0.9 % Sodium Chloride 1000 Ml IV 10/29/24 21:59 Infused .Q1H MUNIR Infusion Lorazepam 1 mg 10/29/24 19:45 10/29/24 20:03 Lorazepam 2 Mg/Ml Inj IVP 10/29/24 19:46 1 mg ONCE ONE Administration Medical Decision Making MDM Narrative Medical decision making narrative: 19-year-old male brought to the ER today by EMS after he was found behaving abnormality at [facility] this evening. Per the patient's own report he went to [employer] in stool some dextromethorphan tonight and ingested the entire bottle. Per the patient and his mother's report he does have a history of drug abuse, in particular dextromethorphan overdose and has had a similar pattern in the past. He presented with symptoms of euphoria, sia, some shouting but no aggressive and or agitation. He was tachycardic, hypertensive, and also mildly hyperthermic with a temperature 100.9?. Nursing discussed vital signs with [facility]. They say these findings are expected with dextromethorphan overdose. They recommend observation. ER for 6 hours and/or until his mental status is cleared back to normal. Poison Center also recommend s other routine toxicologic labs. Laboratory workup came back showing normal white count, hemoglobin, normal platelet count. Electrolytes and kidney function are normal. Serum bicarbonate is mildly low which could reflect dehydration. Glucose mildly elevated at 154. Initial lactic acid was abnormal at 6.4 but normalized down to 1.4 after 2 L of crystalloid. Bilirubin is normal. ALT is normal at 35 but AST is minimally elevated at 41. Salicylate level undetectable. Acetaminophen level is undetectable. Urine drug screen is positive for marijuana and this correlates with the patient's reported use of marijuana. Patient was evaluated by [facility] at about 11:00 p.m... They are recommending inpatient mental health admission. I discussed this plan of care with the patient and he is verbally agreeing. [facility] is currently looking for inpatient beds. At midnight, he remains still a little bit manic and still has a resting sinus tachycardia of 120. Blood pressure stable. Mental status normal. He is clearly not septic or encephalitic causing his symptoms. He is feeling increasingly anxious so will order some more Ativan to help him calm. Discussed with my partner, Dr. Lindsay at midnight. He will oversee the patient's ongoing stay here in the ER. Anticipate he will likely have to board until morning. Once is resting tachycardia is improved he would be medically clear. Lab Data Labs: Lab Results 10/29/24 10/29/24 10/29/24 Range/Units 19:30 19:37 20:01 WBC 10.57 (4.50-11.00) K/uL RBC 4.77 (4.30-5.90) m/uL Hgb 14.6 (13.5-17.5) gm/dL Hct 43.0 (37.0-53.0) % MCV 90 (80-100) fL MCH 31 (26-34) pg MCHC 34 (32-36) gm/dL RDW Coeff of Zaria 13.1 (11.5-15.5) % Plt Count 314 (140-440) K/uL Neut % (Auto) 65.9 (42.0-72.0) % Lymph % (Auto) 21.7 (20-44) % Nobles % (Auto) 9.5 (0.0-11.0) % Eos % (Auto) 2.2 (0.0-7.0) % Baso % (Auto) 0.5 (0.0-3.0) % Neut # (Auto) 6.98 (1.7-7.0) K/uL Lymph # (Auto) 2.29 (0.90-2.90) K/uL Nobles # (Auto) 1.00 H (0.00-0.90) K/UL Eos # (Auto) 0.23 (0.00-0.50) K/uL Baso # (Auto) 0.05 (0.00-0.30) K/uL Abs Immat Gran (auto) 0.02 (0.00-0.30) K/uL Imm/Tot Granulo (auto) 0.2 % INR 1.03 (0.91-1.10) Sodium 138 (135-149) mmol/L Potassium 3.6 (3.6-5.1) mmol/L Chloride 99 (96-114) mmol/L Carbon Dioxide 20 (20-32) mmol/L Anion Gap 19 H (7-15) mEq/L BUN 21 (5-24) mg/dL Creatinine 1.3 (0.5-1.5) mg/dL Estimated Creat Clear 96.54 Estimated GFR 81 ml/min Glucose 154 H (60-115) mg/dL Lactate 6.4 H* (0.5-1.9) mmol/L Calcium 10.3 (8.4-10.6) mg/dL Total Bilirubin 1.0 (0.1-1.5) mg/dL AST 41 H (12-35) U/L ALT 35 (4-50) U/L Alkaline Phosphatase 85 (40-150) U/L Total Protein 7.5 (6.0-8.3) g/dL Albumin 5.1 H (3.3-5.0) g/dL Salicylates < 1.0 L (1.0-10) mg/dL Urine Opiates Screen Negative (Negative) Ur Oxycodone Screen Negative (Negative) Urine Methadone Screen Negative (Negative) Acetaminophen < 10.0 (10.0-30.0) ug/mL Ur Barbiturates Screen Negative (Negative) U Tricyclic Antidepress Negative (Negative) Ur Phencyclidine Scrn Negative (Negative) Ur Amphetamines Screen Negative (Negative) U Methamphetamines Scrn Negative (Negative) U Benzodiazepines Scrn Negative (Negative) Urine Cocaine Screen Negative (Negative) U Marijuana (THC) Screen POSITIVE A (Negative) Ur Drug Screen Comment See Note Ethyl Alcohol < 0.01 (0.01-0.03) % SARS-CoV-2 (PCR) Negative SARS-CoV-2 (Negative) Influenza Type A (PCR) Negative PCR FLU A (Negative) Influenza Type B (PCR) Negative PCR FLU B (Negative) RSV (PCR) Negative PCR RSV (Negative) 10/29/24 Range/Units 20:55 WBC (4.50-11.00) K/uL RBC (4.30-5.90) m/uL Hgb (13.5-17.5) gm/dL Hct (37.0-53.0) % MCV (80-100) fL MCH (26-34) pg MCHC (32-36) gm/dL RDW Coeff of Zaria (11.5-15.5) % Plt Count (140-440) K/uL Neut % (Auto) (42.0-72.0) % Lymph % (Auto) (20-44) % Nobles % (Auto) (0.0-11.0) % Eos % (Auto) (0.0-7.0) % Baso % (Auto) (0.0-3.0) % Neut # (Auto) (1.7-7.0) K/uL Lymph # (Auto) (0.90-2.90) K/uL Nobles # (Auto) (0.00-0.90) K/UL Eos # (Auto) (0.00-0.50) K/uL Baso # (Auto) (0.00-0.30) K/uL Abs Immat Gran (auto) (0.00-0.30) K/uL Imm/Tot Granulo (auto) % INR (0.91-1.10) Sodium (135-149) mmol/L Potassium (3.6-5.1) mmol/L Chloride (96-114) mmol/L Carbon Dioxide (20-32) mmol/L Anion Gap (7-15) mEq/L BUN (5-24) mg/dL Creatinine (0.5-1.5) mg/dL Estimated Creat Clear Estimated GFR ml/min Glucose (60-115) mg/dL Lactate 1.4 (0.5-1.9) mmol/L Calcium (8.4-10.6) mg/dL Total Bilirubin (0.1-1.5) mg/dL AST (12-35) U/L ALT (4-50) U/L Alkaline Phosphatase (40-150) U/L Total Protein (6.0-8.3) g/dL Albumin (3.3-5.0) g/dL Salicylates (1.0-10) mg/dL Urine Opiates Screen (Negative) Ur Oxycodone Screen (Negative) Urine Methadone Screen (Negative) Acetaminophen < 10.0 (10.0-30.0) ug/mL Ur Barbiturates Screen (Negative) U Tricyclic Antidepress (Negative) Ur Phencyclidine Scrn (Negative) Ur Amphetamines Screen (Negative) U Methamphetamines Scrn (Negative) U Benzodiazepines Scrn (Negative) Urine Cocaine Screen (Negative) U Marijuana (THC) Screen (Negative) Ur Drug Screen Comment Ethyl Alcohol (0.01-0.03) % SARS-CoV-2 (PCR) (Negative) Influenza Type A (PCR) (Negative) Influenza Type B (PCR) (Negative) RSV (PCR) (Negative) Imaging Data Chest x-ray: Attestation: I have reviewed the pertinent imaging results. My impression: Clear lungs. Normal cardiac silhouette. Radiologist's impression: Impression: No acute cardiopulmonary disease. ECG Data Attestation: I personally reviewed and interpreted this ECG as follows: Interpretation: Sinus tachycardia Rate: 125 TX: 148 QRS axis: Normal axis ST segment/T wave: No ST segment elevation or depression. QTc: 438 Discharge Plan Discharge Clinical Impression: Dextromethorphan overdose, Feeling suicidal Prescriptions: No Action venlafaxine 37.5 mg capsule,extended release 24hr 37.5 mg PO DAILY venlafaxine 75 mg capsule,extended release 24hr 75 mg PO DAILY dextroamphetamine-amphetamine 20 mg capsule,extended release 24hr 1 cap PO QAM aripiprazole 5 mg tablet 5 mg PO DAILY Follow Up/Referrals: Provider,Not a Local [Primary Care Provider] -
--- OUTSIDE RECORDS SUMMARY | 2024-10-29 19:49 | XMS_ITS | Clinical Summary ---
Author Organization [facility] Address [address] [place] [address] Care Team Providers Care Central Office Repairer Supervisor Name Role Phone [facility] Primary Care Provider Allergies No known active [...] tablet 06/13/2021 Active vitamin D2 (ERGOCALCIFEROL ) 13197 units (1250 mcg) capsuleIndicati ons:Vitamin D deficiency Take 1 capsule (50,000 Units) by mouth every 7 days 8 capsule 06/15/2021 Active Active Problems Problem Noted Date Diagnosed Date Generalized anxiety disorder 08/06/2024 Recurrent major depression 08/06/2024 Polysubstance abuse 06/06/2021 Manic behavior 06/06/2021 Encounters Date Type Department Care Team Description 08/08/2024 Telephone [facility] Services - Behavioral Service Line [address] [place] [address] Renea Nava 08/05/2024 10:47 PM SKIP LOAD DRIVER - 08/06/2024 1:58 AM SKIP LOAD DRIVER Emergency Health [facility] Emergency Dept [address] [place] [address] Manuel Kerns DO Severe episode of recurrent [...] on file Legal Sex Male 2:56 PM SKIP LOAD DRIVER Gender Identity Not on file Sexual Orientation Not on file Last Filed Vital Signs Vital Sign Reading Time Taken Comments Blood Pressure 146/82 08/06/2024 1:39 AM SKIP LOAD DRIVER Pulse 89 08/06/2024 1:39 AM SKIP LOAD DRIVER Temperature 36.8 C (98.3 F) 06/13/2021 7:00 AM SKIP LOAD DRIVER Respiratory Rate 16 06/08/2021 7:00 PM SKIP LOAD DRIVER Oxygen Saturation 98% 08/06/2024 1:40 AM SKIP LOAD DRIVER Inhaled Oxygen Concentration - - Weight 82.3 kg (181 lb 8 oz) 06/09/2021 9:00 AM SKIP LOAD DRIVER Height 185.4 cm (6' 1) 06/06/2021 5:45 PM SKIP LOAD DRIVER Body Mass Index 23.95 06/06/2021 5:45 PM SKIP LOAD DRIVER Plan of Treatment Health Maintenance Due Date [...] to complete this topic [place] Member Subscriber Plan / Payer (Ef fective 2018-Present) Name:EDUARDO AREVALO Relation to Subscriber:Child Name:DEBRA YATES Date of :1966 (Home) Address: [address] [place] [address] Payer ID:[id number] (NAIC) Type:Indemnity Address: [place] [id number] [place] Advance Directives For more information, please contact: [phone] * Full Code (Latest Code Status on File) Date Activated Date Inactivated Comments 06/06/2021 6:29 PM 06/13/2021 4:08 PM All basic and advanced life-sustaining interventions are performed as appropriate Question Answer Comments Code status determined by: Discussion with amaury nt/ legal decision maker Care Teams Central Office Repairer Supervisor Relationship Specialty Start Date End Date [address] [address] PCP - General 08/06/24
--- OUTSIDE RECORDS SUMMARY | 2024-10-29 19:49 | XMS_ITS | Clinical Summary ---
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 PCP - General 08/17/13
[2024-10-29 19:56] LABS: Basophils Absolute Auto 0.05 K/uL (0.00-0.30); Basophils Percent Auto 0.5 % (0.0-3.0); Eosinophils Absolute Auto 0.23 K/uL (0.00-0.50); Eosinophils Percent Auto 2.2 % (0.0-7.0); Hemoglobin* 14.6 gm/dL (13.5-17.5); Immature Granulocytes Abs Auto 0.02 K/uL (0.00-0.30); Immature Granulocytes Pct Auto 0.2 %; Lactate* 6.4 mmol/L (0.5-1.9); Lymphocytes Absolute Auto 2.29 K/uL (0.90-2.90); Lymphocytes Percent Auto 21.7 % (20-44); Mean Corpuscular HGB Conc 34 gm/dL (32-36); Mean Corpuscular Hemoglobin 31 pg (26-34); Mean Corpuscular Volume 90 fL (80-100); Monocytes Percent Auto 9.5 % (0.0-11.0); Neutrophils Absolute Auto 6.98 K/uL (1.7-7.0); Neutrophils Percent Auto 65.9 % (42.0-72.0); Platelet Count* 314 K/uL (140-440); RDW Coefficient of Variation % 13.1 % (11.5-15.5); Red Blood Count 4.77 m/uL (4.30-5.90); White Blood Count* 10.57 K/uL (4.50-11.00)
[2024-10-29 19:57] LABS: Slide Review Reflex No
[2024-10-29] MEDS: 0.9 % SODIUM CHLORIDE 1000 ml 1,000 ML IV ×2 (20:03→20:56)
[2024-10-29] MEDS: LORazepam 2 MG/ML inj 1 MG IVP (20:03)
[2024-10-29 20:05] LABS: Amphetamine Screen Urine Negative (Negative); Barbiturate Screen Urine Negative (Negative); Benzodiazepines Screen Urine Negative (Negative); Cannabinoid Screen Urine POSITIVE (Negative); Cocaine Screen Urine Negative (Negative); Methadone Screen Urine Negative (Negative); Methamphetamines Screen Urine Negative (Negative); Opiate Screen Urine Negative (Negative); Oxycodone Screen Urine Negative (Negative); Phencyclidine Screen Urine Negative (Negative); Tricyclic Antidepressant Urine Negative (Negative)
[2024-10-29 20:11] LABS: Albumin* 5.1 g/dL (3.3-5.0); Chloride* 99 mmol/L (96-114); Sodium* 138 mmol/L (135-149)
[2024-10-29 20:12] LABS: Potassium* 3.6 mmol/L (3.6-5.1)
[2024-10-29 20:14] LABS: Alanine Aminotransferase* 35 U/L (4-50); Alkaline Phosphatase* 85 U/L (40-150); Anion Gap 19 mEq/L (7-15); Aspartate Amino Transferase* 41 U/L (12-35); Blood Urea Nitrogen* 21 mg/dL (5-24); Calcium* 10.3 mg/dL (8.4-10.6); Carbon Dioxide* 20 mmol/L (20-32); Creatinine* 1.3 mg/dL (0.5-1.5); Est. Creatinine Clearance* 96.54; Estimated Glomerular Filt Rate 81 ml/min; Glucose* 154 mg/dL (60-115); Total Protein* 7.5 g/dL (6.0-8.3)
[2024-10-29 20:15] LABS: INR 1.03 (0.91-1.10); Prothrombin Time 14.3 Seconds
[2024-10-29 20:18] LABS: Acetaminophen* < 10.0 ug/mL (10.0-30.0); Ethanol* < 0.01 % (0.01-0.03); Salicylate* < 1.0 mg/dL (1.0-10)
[2024-10-29 20:43] LABS: PCR FLU A Negative PCR FLU A (Negative); PCR FLU B Negative PCR FLU B (Negative); PCR RSV Negative PCR RSV (Negative); SARS PCR* Negative SARS-CoV-2 (Negative)
[2024-10-29 21:01] LABS: Lactate* 1.4 mmol/L (0.5-1.9)
[2024-10-29] MEDS: NICOTINE 21 MG PATCH 1 PATCH TRANSDERMA (21:14)
[2024-10-29 22:34] LABS: Acetaminophen* < 10.0 ug/mL (10.0-30.0)
[2024-10-30] MEDS: LORazepam 2 MG/ML inj IVP (00:10)
[2024-10-30] MEDS: OLANZapine 5 MG TAB.RAPDIS 10 MG PO (01:00)
[2024-10-30] MEDS: LORazepam 1 MG TABLET 2 MG PO (02:47)
[2024-10-30 08:31] VITALS: BP 146/88; PULSE 114; RESP 18; TEMP 36.3; O2SAT 96
[2024-10-30] MEDS: LORazepam 1 MG TABLET PO (09:16)
[2024-10-30 10:40] VITALS: BP 149/94; PULSE 118; RESP 16; TEMP 36.8; O2SAT 96
== END 2024-10-30 11:22 ==
PROVIDERS: Emergency Provider Emergency Medicine
DX: T48.3X2A Poisoning by antitussives, intentional self-harm, initial encounter (principal); R41.82 Altered mental status, unspecified; R45.851 Suicidal ideations
CPT/HCPCS: 36415; 71045; 80053; 80143; 80179; 80306; 82077; 83605; 85025; 85610; 87631; 93005; 96361; 96374; 96376; 99284; 99285; A9270; J2060; J7030; S4990

== ENCOUNTER 2024-10-30 11:03 | Outpatient (CLI) | payer BC, SELFPAY | END 2024-10-30 11:04 | disposition home or self-care (01) | LOC: AMB 11-01 12:22 | PROVIDERS: Visit Provider Family Medicine | DX: R45.851 Suicidal ideations (principal) | CPT/HCPCS: A0425; A0429 ==

== ENCOUNTER 2024-11-28 08:07 | Emergency (ER) | payer BC, SELFPAY ==
--- OUTSIDE RECORDS SUMMARY | 2024-11-28 08:09 | XMS_ITS | Clinical Summary ---
Author Organization [facility] Address [address] [place] [address] Care Team Providers Care Instructional Manager Name Role Phone [facility] Primary Care Provider Allergies No known active [...] tablet 06/13/2021 Active vitamin D2 (ERGOCALCIFEROL ) 69242 units (1250 mcg) capsuleIndicati ons:Vitamin D deficiency Take 1 capsule (50,000 Units) by mouth every 7 days 8 capsule 06/15/2021 Active Active Problems Problem Noted Date Diagnosed Date Generalized anxiety disorder 08/06/2024 Recurrent major depression 08/06/2024 Polysubstance abuse 06/06/2021 Manic behavior 06/06/2021 Immunizations Immunization Administration Dates Next Due COVID-19 MONOVALENT 12+ [...] on file 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 Gender Identity Not on file Sexual Orientation Not on file Last Filed Vital Signs Vital Sign Reading Time Taken Comments Blood Pressure 146/82 08/06/2024 1:39 AM MANAGEMENT ASSISTANT Pulse 89 08/06/2024 1:39 AM MANAGEMENT ASSISTANT Temperature 36.8 C (98.3 F) 06/13/2021 7:00 AM MANAGEMENT ASSISTANT Respiratory Rate 16 06/08/2021 7:00 PM MANAGEMENT ASSISTANT Oxygen Saturation 98% 08/06/2024 1:40 AM MANAGEMENT ASSISTANT Inhaled Oxygen Concentration - - Weight 82.3 kg (181 lb 8 oz) 06/09/2021 9:00 AM MANAGEMENT ASSISTANT Height 185.4 cm (6' 1) 06/06/2021 5:45 PM MANAGEMENT ASSISTANT Body Mass Index 23.95 06/06/2021 5:45 PM MANAGEMENT ASSISTANT Plan of Treatment Health Maintenance Due Date Last Done Comments ADVANCE CARE PLANNING 2004 ANNUAL REVIEW OF HM ORDERS 2004 HIV SCREENING 10/23/2019 HPV IMMUNIZATION (1 - Male 3-dose series) 10/23/2019 MENINGITIS B IMMUNIZATION (1 of 2 - Standard) 2020 HEPATITIS C SCREENING 2022 YEARLY PREVENTIVE VISIT 06/10/2023 06/10/2022 HEPATITIS A IMMUNIZATION (1 of 2 - Risk 2-dose series) 10/23/2023 COVID-19 Vaccine (4 - season) 2024 07/05/2021, 12/08/2020, 11/17/2020 INFLUENZA VACCINE (Season Ended) 2025 DTAP/TDAP/TD IMMUNIZATION (7 - Td or Tdap) [...] patient's age to complete this topic Insurance [facility] [place] Advance Directives For more information, please contact: [phone] * Full Code (Latest Code Status on File) Date Activated Date Inactivated Comments 06/06/2021 6:29 PM 06/13/2021 4:08 PM All basic and advanced life-sustaining interventions are performed as appropriate Question Answer Comments Code status determined by: Discussion with amaury nt/ legal decision maker Care Teams Instructional Manager Relationship Specialty Start Date End Date [facility], [place] [phone] PCP - General 08/06/24
--- OUTSIDE RECORDS SUMMARY | 2024-11-28 08:09 | XMS_ITS | Clinical Summary ---
Author Organization [facility] Address [address] [place] [address] Care Team Providers Care Communications Agent Name Role Phone Pcp, No Primary Care [...] Immunization Administration Dates Next Due COVID-19 vaccine ([employer] 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 PCP - General 08/17/13
[2024-11-28 08:17] VITALS: BP 143/91; PULSE 107; RESP 18; TEMP 37.6; O2SAT 96; BMI 23.1
--- NOTE | 2024-11-28 08:23 | ED_ITS ---
HPI - Psych General Time Seen by Provider: 08:23 Date Seen: 11/28/24 Chief Complaint: Psychiatric Problem/Disorder Stated Complaint: Mental health Time Seen by Provider: 11/28/24 08:23 Source: patient, RN notes reviewed, old records reviewed and police Mode of arrival: other (law enforcement) Limitations: no limitations History of Present Illness HPI Narrative: Eduardo is a 19-year-old male with history of Benadryl abuse who comes to the emergency room via law enforcement after having been found outside walking down would leave bare foot. He unfortunately, has had substance abuse issues and was recently placed for some delusional behavior. Last night he states he took 800 mg of Benadryl and went to listen to music. He notes that he did then took some nicotine through a vape. He was noted to be out walking barefoot by Community member who called 911. When the police arrived he was cooperative and came with him to the hospital. He is not under arrest nor suspected in any recent crime. Patient denies suicidal ideation, recent injury. Here in the emergency room Eduardo states that he would write something to calm down and really cannot talk about what has been going on without of panic attack occurring. He is receptive to Ativan and Zyprexa. Related Data Home Medications ?Medication ?Instructions ?Recorded ?Confirmed aripiprazole 5 mg tablet 5 mg PO DAILY 10/17/24 11/28/24 dextroamphetamine-amphetamine ER 1 cap PO QAM 10/17/24 11/28/24 20 mg 24hr capsule,extend release venlafaxine 37.5 mg 37.5 mg PO DAILY 10/17/24 11/28/24 capsule,extended release 24 hr venlafaxine 75 mg capsule,extended 75 mg PO DAILY 10/17/24 11/28/24 release 24 hr olanzapine 10 mg tablet 10 mg PO QPM 11/28/24 11/28/24 Allergies Allergy/AdvReac Type Severity Reaction Status Date / Time No Known Drug Allergies Allergy Verified 11/28/24 08:26 Review of Systems Status of ROS: Reports: unobtainable due to mental status PFSH PFS Social History Smoking Status: Current some day smoker Do you use any of these nicotine containing products: Vaping Products Second hand tobacco smoke exposure: Yes How often do you have a drink containing alcohol: never How often do you have six or more drinks on one occasion: Never AUDIT-C Alcohol total score: 0 Non-prescribed substance use: marijuana (any form) and other Non-prescribed substance use details: Benadryl Exam Narrative: Exam Narrative: Patient is alert and oriented. Poor eye contact. Obeying commands. Very anxious. Strong smell of body odor. Heart with a tachycardic rate normal rhythm. Lungs are clear bilaterally. Abdomen soft. Very thin in appearance. Feet are dirty with a superficial abrasion on the right great toe. Moving feet and toes without difficulty. Const: Vital Signs, click to edit/add: Vital Signs - 24 hr 11/28/24 08:17 11/28/24 15:41 11/28/24 17:00 Temperature 99.6 F 97.8 F Pulse Rate [Pulse Oximeter] 107 H 101 H Respiratory Rate 18 20 Blood Pressure [Ri ght Upper Arm] 143/91 H 146/79 H Pulse Oximetry 96 98 98 Oxygen Delivery Me thod Room Air Room Air 11/28/24 17:03 11/28/24 17:34 Temperature Pulse Rate [Pulse Oximeter] 90 87 Respiratory Rate 16 14 Blood Pressure [Ri ght Upper Arm] 114/52 L 107/53 L Pulse Oximetry 98 98 Oxygen Delivery Me thod Room Air Room Air Course Course ED Course: Differential diagnosis includes drug-induced psychosis, underlying schizophrenia, personality disorder, electrolyte imbalance. Will is check blood to include CBC, comprehensive panel, drug screen, urinalysis. Will also give Zyprexa 5 mg p.o. and Ativan 1 mg p.o.. I have asked nursing staff to offer water and fluids. Reevaluation(s) Reevaluation #1: Further discussion after Ativan on Zyprexa with Eduardo. Receptive to having a warm blanket. Nursing staff does tell me that Eduardo heard voices coming from the light bulb. Also states that he saw his mother in the waiting room even though she is not here. Will give 2nd dose of Zyprexa 5 mg. EKG without any evidence of prolonged QT. Will ask NIKOLAI for assistance in evaluation. Reevaluation #2: Patient given Zyprexa 10 mg IM as agitation increased he was wishing to leave. I have placed Eduardo on a hold. He continues to have strange thoughts going off on a tangent and to be very agitated. I have significant concerns regarding accidental injury given his inability to detect reality. His mom and brother are present and they are wholly supportive of this. Reevaluation #3: Patient's agitation continued and we did give 10 mg of IM Haldol. Eduardo was placed on a heart monitor. Was crying, without tears, no diaphoresis and patient was afebrile. He continued to be agitated and I did request consult with psychiatrist . We had elected to use Valium 5 mg IV along with 1 L of normal saline. When this was drawn up nursing staff went back in the room and Eduardo was resting comfortably with normal blood pressure and pulse. He continues to rest. Consultations Consultation #1: I spoke with NIKOLAI nurse who notes some psychosis with Eduardo's exam. I do not think that he is safe given that he thinks he is having interactions with light bulbs blankets and has some paranoia. Patient currently cooperative. But nursing staff notes that he is starting to become more agitated. He has had a total of 10 mg Zyprexa orally and 1 mg Ativan will give him a 2nd dose of Ativan 1 mg p.o.. Urinalysis positive for tricyclics and marijuana which she admits to using. Vital Signs Vital signs: Initial Vital Signs Temperature 99.6 F 11/28/24 08:17 Temperature Source Temporal Artery Scan 11/28/24 08:17 Pulse Rate 107 H 11/28/24 08:17 Respiratory Rate 18 11/28/24 08:17 Blood Pressure 143/91 H 11/28/24 08:17 Blood Pressure Mean 108 H 11/28/24 08:17 Blood Pressure Position Sitting 11/28/24 08:17 Pulse Oximetry 96 11/28/24 08:17 Oxygen Delivery Method Room Air 11/28/24 08:17 Vital Signs Temperature 99.6 F 11/28/24 08:17 Pulse Rate 107 H 11/28/24 08:17 Respiratory Rate 18 11/28/24 08:17 Blood Pressure 143/91 H 11/28/24 08:17 Pulse Oximetry 96 11/28/24 08:17 Oxygen Delivery Method Room Air 11/28/24 08:17 Temperature 97.8 F 11/28/24 15:41 Pulse Rate 87 11/28/24 17:34 Respiratory Rate 14 11/28/24 17:34 Blood Pressure 107/53 L 11/28/24 17:34 Pulse Oximetry 98 11/28/24 17:34 Oxygen Delivery Method Room Air 11/28/24 17:34 Medications Administered Medications: Discontinued Medications Generic Name Dose Route Start Last Admin Trade Name Miguel PRN Reason Stop Dose Admin Haloperidol Lactate 10 mg 11/28/24 15:07 11/28/24 16:00 Haloperidol 5 Mg/Ml Inj IM 11/28/24 15:08 10 mg ONCE ONE Administration Lorazepam 1 mg 11/28/24 08:24 11/28/24 08:25 Lorazepam 1 Mg Tablet PO 11/28/24 08:25 1 mg ONCE ONE Administration Lorazepam 1 mg 11/28/24 12:08 11/28/24 13:27 Lorazepam 2 Mg/Ml Inj IVP 11/28/24 12:09 Not Given ONCE ONE Lorazepam 1 mg 11/28/24 13:26 11/28/24 12:22 Lorazepam 1 Mg Tablet PO 11/28/24 13:27 1 mg ONCE ONE Administration Olanzapine 5 mg 11/28/24 08:58 11/28/24 09:04 Olanzapine 5 Mg Tab.Rapdis PO 11/28/24 08:59 5 mg ONCE ONE Administration Olanzapine 5 mg 11/28/24 10:11 11/28/24 10:13 Olanzapine 5 Mg Tab.Rapdis PO 11/28/24 10:12 5 mg ONCE ONE Administration Olanzapine 10 mg 11/28/24 13:10 11/28/24 13:16 Olanzapine 5 Mg/Ml Inj IM 11/28/24 13:11 10 mg ONCE ONE Administration MDM - Psych MDM Narrative Medical decision making narrative: 1. Psychosis-patient notes is that he has the see hearing voices coming from the light ball as well as the blankets. He has been cooperative here but notes that he is feeling very anxious. He is given a total of 10 mg p.o. Zyprexa, 10 mg IM Zyprexa and 10 mg IM Haldol. Ativan 2 mg p.o.. Patient is medically cleared. Labs include negative salicylate, acetaminophen, alcohol. Magnesium within normal limits. White count slightly elevated as are LFTs but I do suspect this is likely from nicotine and Benadryl use. Challenges with managing his agitation. Nursing staff did contact poison Control but use of Benadryl was last evening. No evidence of a serotonin like syndrome at this time. He is now at last resting comfortably with normal pulse and blood pressure. 2. Disposition-patient has been accepted by per [facility]. Will travel by ALS ambulance. Did receive a phone call from the ambulance crew who notes that Eduardo did become more agitated stating his foot hurt. EMS crew thinks that this is mostly anxiety. They did give the patient 2 mg of Versed. Of note no evidence of significant foot injury as he was ambulating without difficulty earlier. Medical Records Attestation: I reviewed the patient's medical records. Lab Data Attestation: I reviewed the patient's lab results. Labs: Lab Results 11/28/24 11/28/24 11/28/24 Range/Units 08:34 08:50 08:58 WBC 12.48 H (4.50-11.00) K/uL RBC 4.37 (4.30-5.90) m/uL Hgb 13.5 (13.5-17.5) gm/dL Hct 40.9 (37.0-53.0) % MCV 94 (80-100) fL MCH 31 (26-34) pg MCHC 33 (32-36) gm/dL RDW Coeff of Zaria 13.7 (11.5-15.5) % Plt Count 297 (140-440) K/uL Neut % (Auto) 81.2 H (42.0-72.0) % Lymph % (Auto) 11.1 L (20-44) % [place] % (Auto) 6.9 (0.0-11.0) % Eos % (Auto) 0.4 (0.0-7.0) % Baso % (Auto) 0.2 (0.0-3.0) % Neut # (Auto) 10.10 H (1.7-7.0) K/uL Lymph # (Auto) 1.40 (0.90-2.90) K/uL [place] # (Auto) 0.90 (0.00-0.90) K/UL Eos # (Auto) 0.00 (0.00-0.50) K/uL Baso # (Auto) 0.00 (0.00-0.30) K/uL Abs Immat Gran (auto) 0.00 (0.00-0.30) K/uL Imm/Tot Granulo (auto) 0.2 % Sodium 139 (135-149) mmol/L Potassium 4.5 (3.6-5.1) mmol/L Chloride 100 (96-114) mmol/L Carbon Dioxide 19 L (20-32) mmol/L Anion Gap 20 H (7-15) mEq/L BUN 22 (5-24) mg/dL Creatinine 1.5 (0.5-1.5) mg/dL Estimated Creat Clear 95.76 Estimated GFR 68 ml/min Glucose 111 (60-115) mg/dL Calcium 10.1 (8.4-10.6) mg/dL Magnesium 2.0 (1.5-2.6) mg/dL Total Bilirubin 1.7 H (0.1-1.5) mg/dL AST 84 H (12-35) U/L ALT 78 H (4-50) U/L Alkaline Phosphatase 83 (40-150) U/L Total Protein 8.0 (6.0-8.3) g/dL Albumin 5.3 H (3.3-5.0) g/dL Urine Color Yellow (Yellow) Urine Appearance Clear (Clear) Urine pH 6.0 (5.0-8.5) Ur Specific [place] >= 1.030 (1.000-1.030) Urine Protein 2+ A (Negative) Urine Glucose (UA) Negative (Negative) Urine Ketones 3+ A (Negative) Urine Blood Negative (Negative) Urine Nitrite Negative (Negative) Urine Bilirubin 1+ A (Negative) Urine Urobilinogen 0.2 (0.2-1.0) Ur Leukocyte Esterase Negative (Negative) Urine RBC 2-5 A (0-2) Urine WBC 0-2 (0-5) Ur Squamous Epith Cells Few (None-Few) Urine Bacteria Few A (None) Salicylates < 1.0 L (1.0-10) mg/dL Urine Opiates Screen Negative (Negative) Ur Oxycodone Screen Negative (Negative) Urine Methadone Screen Negative (Negative) Acetaminophen < 10.0 (10.0-30.0) ug/mL Ur Barbiturates Screen Negative (Negative) U Tricyclic Antidepress POSITIVE A (Negative) Ur Phencyclidine Scrn Negative (Negative) Ur Amphetamines Screen Negative (Negative) U Methamphetamines Scrn Negative (Negative) U Benzodiazepines Scrn Negative (Negative) Urine Cocaine Screen Negative (Negative) U Marijuana (THC) Screen POSITIVE A (Negative) Ur Drug Screen Comment See Note Ethyl Alcohol < 0.01 (0.01-0.03) % SARS-CoV-2 Ag (Rapid) Lab Acknowledgement Test Added 11/28/24 Range/Units 12:58 WBC (4.50-11.00) K/uL RBC (4.30-5.90) m/uL Hgb (13.5-17.5) gm/dL Hct (37.0-53.0) % MCV (80-100) fL MCH (26-34) pg MCHC (32-36) gm/dL RDW Coeff of Zaria (11.5-15.5) % Plt Count (140-440) K/uL Neut % (Auto) (42.0-72.0) % Lymph % (Auto) (20-44) % [place] % (Auto) (0.0-11.0) % Eos % (Auto) (0.0-7.0) % Baso % (Auto) (0.0-3.0) % Neut # (Auto) (1.7-7.0) K/uL Lymph # (Auto) (0.90-2.90) K/uL [place] # (Auto) (0.00-0.90) K/UL Eos # (Auto) (0.00-0.50) K/uL Baso # (Auto) (0.00-0.30) K/uL Abs Immat Gran (auto) (0.00-0.30) K/uL Imm/Tot Granulo (auto) % Sodium (135-149) mmol/L Potassium (3.6-5.1) mmol/L Chloride (96-114) mmol/L Carbon Dioxide (20-32) mmol/L Anion Gap (7-15) mEq/L BUN (5-24) mg/dL Creatinine (0.5-1.5) mg/dL Estimated Creat Clear Estimated GFR ml/min Glucose (60-115) mg/dL Calcium (8.4-10.6) mg/dL Magnesium (1.5-2.6) mg/dL Total Bilirubin (0.1-1.5) mg/dL AST (12-35) U/L ALT (4-50) U/L Alkaline Phosphatase (40-150) U/L Total Protein (6.0-8.3) g/dL Albumin (3.3-5.0) g/dL Urine Color (Yellow) Urine Appearance (Clear) Urine pH (5.0-8.5) Ur Specific [place] (1.000-1.030) Urine Protein (Negative) Urine Glucose (UA) (Negative) Urine Ketones (Negative) Urine Blood (Negative) Urine Nitrite (Negative) Urine Bilirubin (Negative) Urine Urobilinogen (0.2-1.0) Ur Leukocyte Esterase (Negative) Urine RBC (0-2) Urine WBC (0-5) Ur Squamous Epith Cells (None-Few) Urine Bacteria (None) Salicylates (1.0-10) mg/dL Urine Opiates Screen (Negative) Ur Oxycodone Screen (Negative) Urine Methadone Screen (Negative) Acetaminophen (10.0-30.0) ug/mL Ur Barbiturates Screen (Negative) U Tricyclic Antidepress (Negative) Ur Phencyclidine Scrn (Negative) Ur Amphetamines Screen (Negative) U Methamphetamines Scrn (Negative) U Benzodiazepines Scrn (Negative) Urine Cocaine Screen (Negative) U Marijuana (THC) Screen (Negative) Ur Drug Screen Comment Ethyl Alcohol (0.01-0.03) % SARS-CoV-2 Ag (Rapid) Negative Lab Acknowledgement ECG Data Attestation: I personally reviewed and interpreted this ECG as follows: Interpretation: EKG by my read shows sinus rhythm at a rate of 98. I do not note any acute ST or T-wave changes. QT and NV intervals within normal limits. Discharge Plan Discharge Clinical Impression: Acute psychosis, Diphenhydramine overdose Patient Disposition: Xfer Psychiatric Hosp Condition: Improved Prescriptions: No Action venlafaxine 37.5 mg capsule,extended release 24hr 37.5 mg PO DAILY venlafaxine 75 mg capsule,extended release 24hr 75 mg PO DAILY dextroamphetamine-amphetamine 20 mg capsule,extended release 24hr 1 cap PO QAM aripiprazole 5 mg tablet 5 mg PO DAILY olanzapine 10 mg tablet 10 mg PO QPM Stand Alone Forms: MyHealth Info Instructions
[2024-11-28] MEDS: LORazepam 1 MG TABLET PO ×2 (08:25→12:22)
[2024-11-28 08:40] LABS: Basophils Percent Auto 0.2 % (0.0-3.0); Eosinophils Percent Auto 0.4 % (0.0-7.0); Hematocrit 40.9 % (37.0-53.0); Hemoglobin* 13.5 gm/dL (13.5-17.5); Immature Granulocytes Pct Auto 0.2 %; Lymphocytes Percent Auto 11.1 % (20-44); Mean Corpuscular HGB Conc 33 gm/dL (32-36); Mean Corpuscular Hemoglobin 31 pg (26-34); Mean Corpuscular Volume 94 fL (80-100); Monocytes Percent Auto 6.9 % (0.0-11.0); Neutrophils Percent Auto 81.2 % (42.0-72.0); Platelet Count* 297 K/uL (140-440); RDW Coefficient of Variation % 13.7 % (11.5-15.5); Red Blood Count 4.37 m/uL (4.30-5.90); White Blood Count* 12.48 K/uL (4.50-11.00)
[2024-11-28 08:42] LABS: Slide Review Reflex No
--- OUTSIDE RECORDS SUMMARY | 2024-11-28 08:44 | XMS_ITS | Clinical Summary ---
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 Gender Identity Not on file Sexual Orientation Not on file Last Filed Vital Signs Vital Sign Reading Time Taken Comments Blood Pressure 146/82 08/06/2024 1:39 AM CLINICAL NURSING INSTRUCTOR Pulse 89 08/06/2024 1:39 AM CLINICAL NURSING INSTRUCTOR Temperature 36.8 C (98.3 F) 06/13/2021 7:00 AM CLINICAL NURSING INSTRUCTOR Respiratory Rate 16 06/08/2021 7:00 PM CLINICAL NURSING INSTRUCTOR Oxygen Saturation 98% 08/06/2024 1:40 AM CLINICAL NURSING INSTRUCTOR Inhaled Oxygen Concentration - - Weight 82.3 kg (181 lb 8 oz) 06/09/2021 9:00 AM CLINICAL NURSING INSTRUCTOR Height 185.4 cm (6' 1) 06/06/2021 5:45 PM CLINICAL NURSING INSTRUCTOR Body Mass Index 23.95 06/06/2021 5:45 PM CLINICAL NURSING INSTRUCTOR Plan of Treatment Health Maintenance Due Date [...] patient's age to complete this topic Insurance [facility] [place] Advance Directives For more information, please contact: [phone] * Full Code (Latest Code Status on File) Date Activated Date Inactivated Comments 06/06/2021 6:29 PM 06/13/2021 4:08 PM All basic and advanced life-sustaining interventions are performed as appropriate Question Answer Comments Code status determined by: Discussion with amaury nt/ legal decision maker Care Teams Injury Prevention Coordinator Relationship Specialty Start Date End Date [facility], [place] [phone] PCP - General 08/06/24
--- OUTSIDE RECORDS SUMMARY | 2024-11-28 08:44 | XMS_ITS | Clinical Summary ---
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 PCP - General 08/17/13
[2024-11-28 08:55] LABS: Albumin* 5.3 g/dL (3.3-5.0); Chloride* 100 mmol/L (96-114)
[2024-11-28 08:56] LABS: Potassium* 4.5 mmol/L (3.6-5.1); Sodium* 139 mmol/L (135-149)
[2024-11-28 08:58] LABS: Alanine Aminotransferase* 78 U/L (4-50); Alkaline Phosphatase* 83 U/L (40-150); Anion Gap 20 mEq/L (7-15); Aspartate Amino Transferase* 84 U/L (12-35); Bilirubin Total* 1.7 mg/dL (0.1-1.5); Blood Urea Nitrogen* 22 mg/dL (5-24); Carbon Dioxide* 19 mmol/L (20-32); Creatinine* 1.5 mg/dL (0.5-1.5); Est. Creatinine Clearance* 95.76; Estimated Glomerular Filt Rate 68 ml/min
[2024-11-28 08:58] LABS: Appearance Urine Clear (Clear); Bilirubin Urine 1+ (Negative); Blood Urine Negative (Negative); Color Urine Yellow (Yellow); Glucose Urine Negative (Negative); Ketones Urine 3+ (Negative); Leukocyte Esterase Urine Negative (Negative); Nitrite Urine Negative (Negative); Protein Urine 2+ (Negative); Specific Gravity Urine >= 1.030 (1.000-1.030); Urobilinogen Urine 0.2 (0.2-1.0)
[2024-11-28 08:59] LABS: Calcium* 10.1 mg/dL (8.4-10.6); Glucose* 111 mg/dL (60-115)
[2024-11-28 09:01] LABS: Acetaminophen* < 10.0 ug/mL (10.0-30.0); Ethanol* < 0.01 % (0.01-0.03); Salicylate* < 1.0 mg/dL (1.0-10)
[2024-11-28] MEDS: OLANZapine 5 MG TAB.RAPDIS PO ×2 (09:04→10:13)
[2024-11-28 09:07] LABS: Amphetamine Screen Urine Negative (Negative); Barbiturate Screen Urine Negative (Negative); Benzodiazepines Screen Urine Negative (Negative); Cannabinoid Screen Urine POSITIVE (Negative); Cocaine Screen Urine Negative (Negative); Methadone Screen Urine Negative (Negative); Methamphetamines Screen Urine Negative (Negative); Opiate Screen Urine Negative (Negative); Oxycodone Screen Urine Negative (Negative); Phencyclidine Screen Urine Negative (Negative); Tricyclic Antidepressant Urine POSITIVE (Negative)
[2024-11-28 09:26] LABS: Bacteria Urine Few; Squamous Epithelial Cell Urine Few (None-Few); WBC Urine 0-2 (0-5)
[2024-11-28] MEDS: OLANZapine 5 MG/ML inj 10 MG IM (13:16)
[2024-11-28 13:23] LABS: SARS Antigen* Negative
[2024-11-28 15:41] VITALS: BP 146/79; PULSE 101; RESP 20; TEMP 36.6; O2SAT 98
[2024-11-28] MEDS: HALOPERIDOL 5 MG/ML INJ 10 MG IM (16:00)
[2024-11-28 17:00] VITALS: O2SAT 98
[2024-11-28 17:03] VITALS: BP 114/52; PULSE 90; RESP 16; O2SAT 98
[2024-11-28 17:34] VITALS: BP 107/53; PULSE 87; RESP 14; O2SAT 98
== END 2024-11-28 18:43 ==
PROVIDERS: Emergency Provider Family Medicine
DX: F29 Unspecified psychosis not due to a substance or known physiological condition (principal); T45.0X1A Poisoning by antiallergic and antiemetic drugs, accidental (unintentional), initial encounter
CPT/HCPCS: 36415; 80053; 80143; 80179; 80306; 81001; 82077; 83735; 85025; 87086; 87426; 93005; 94761; 96372; 99284; 99285; A9270; J1630

== ENCOUNTER 2024-11-28 18:25 | Outpatient (CLI) | payer BC, SELFPAY | END 2024-11-28 18:26 | disposition home or self-care (01) | LOC: AMB 11-29 15:26 | PROVIDERS: Visit Provider Family Medicine | DX: F23 Brief psychotic disorder (principal); R44.0 Auditory hallucinations; T45.0X1A Poisoning by antiallergic and antiemetic drugs, accidental (unintentional), initial encounter | CPT/HCPCS: A0425; A0427 ==